=== PATIENT | female | born 1985 | race African-American/Black ===

== ENCOUNTER 2024-01-21 10:03 | Emergency (ER) | payer MEDICAID, OTHER ==
[~2024-01-21] VITALS: Ht 170.2 cm; Wt 74.8 kg
[2024-01-21] MEDS: KETOROLAC TROMETH 60MG/2ML VIAL IM ONE (11:07)
[2024-01-21] MEDS ORDERED: METH-1182 PO (11:16)
[2024-01-21] MEDS ORDERED: IBUP-1456 PO (11:16)
[2024-01-21 11:21] VITALS: BP 126/76; PULSE 92; RESP 18; TEMP 97.8; O2SAT 100
== END 2024-01-21 11:24 | disposition home or self-care (01) ==
LOC: ER 10:03
DX: M43.6 Torticollis (principal); J45.909 Unspecified asthma, uncomplicated
CPT/HCPCS: 72040; 93005; 96372; 99283; J1885